=== PATIENT | male | born 1935 | race African-American/Black ===

== ENCOUNTER 2024-03-26 15:27 | Inpatient (IN) | payer OTHER ==
[~2024-03-26] VITALS: Ht 182.9 cm; Wt 56.5 kg
[2024-03-26] MEDS: ALBUTEROL (0.083%) 2.5MG/3ML NEB HHN NR (15:35)
[2024-03-26] MEDS: NITROGLYCERIN OINT 1GM/INCH UDPKT TD NR (16:00)
[2024-03-26] MEDS: FUROSEMIDE 40MG/4ML VIAL IV NR (16:00)
[2024-03-26 16:13] LABS: BASOPHILS % 0.1 % (0.0-2.0); HEMATOCRIT. 37.2 % (42.0-52.0); HEMOGLOBIN. 11.5 g/dL (14.0-18.0); LYMPHOCYTES % 7.8 % (20.0-50.0); MEAN CORPUSCULAR HEMOGLOBIN 30.8 pg (28.0-32.0); MEAN CORPUSCULAR HGB CONC 30.9 g/dL (31.0-37.0); MEAN CORPUSCULAR VOLUME 99.7 fL (80.0-94.0); MEAN PLATELET VOLUME 8.4 fl (7.4-10.4); MONOCYTES % 5.6 % (2.0-8.0); NEUTROPHILS % 86.5 % (40.0-76.0); PLATELET 313 x1000/uL (130-400); RED BLOOD CELL COUNT 3.73 mill/uL (4.7-6.1); RED CELL DISTRIBUTION WIDTH 18.1 % (11.6-14.6); WHITE BLOOD COUNT 8.7 x1000/uL (4.5-11.0)
[2024-03-26 16:28] LABS: CHLORIDE 124 mEq/L (98-107); POTASSIUM 4.3 mEq/L (3.5-5.1)
[2024-03-26 16:29] LABS: CALCIUM 10.2 mg/dL (8.7-10.4); CARBON DIOXIDE 25 mEq/L (21-32)
[2024-03-26 16:34] LABS: CREATININE 1.7 mg/dL (0.6-1.3); GLUCOSE 214 mg/dL (70-105); UREA NITROGEN BLOOD 48 mg/dL (9-23)
[2024-03-26 16:35] LABS: TROPONIN I HIGH SENSITIVITY 30 ng/L (3.0-53)
[2024-03-26 16:40] LABS: PARTIAL THROMBOPLASTIN TIME 50.9 sec (23.4-31.0); PROTHROMBIN TIME 62.9 sec (9.6-11.0)
[2024-03-26 16:45] LABS: BG BASE EXCESS 0.9 mmol/L (-2.0-3.0); BG CARBOXYHEMOGLOBIN 0.3 % (0.5-1.5); BG DEOXYHEMOGLOBIN 2.2 % (0.0-5.0); BG FRACTION INSPIRED OXYGEN 100; BG HCO3 ACT 25.9 mmol/L (21.0-28.0); BG OXYGEN SATURATION 97.8 % (94.0-98.0); BG OXYHEMOGLOBIN 97.5 % (94.0-98.0); BG PCO2 42.5 mmHg (35.0-48.0); BG PH 7.402 (7.350-7.450); BG PO2 101.8 mmHg (83.0-108.0); BG SAMPLE SITE RIGHT RADIAL; BG TOTAL HEMOGLOBIN 11.7 g/dL (13.5-17.5); BG VENT MODE MASK - NRB
[2024-03-26 16:49] LABS: INR 6.5
[2024-03-26 17:04] LABS: SODIUM 160 mEq/L (136-145)
[2024-03-26] MEDS: DEXT 5%/LACTATED RINGERS 1,000 ML IV SCH (20:00)
[2024-03-26] MEDS ORDERED: DOCUSATE SODIUM 100MG CAPSULE PO PRN (20:15)
[2024-03-26] MEDS ORDERED: ENOXAPARIN 40MG/0.4ML SYR SUBCUT SCH (20:15)
[2024-03-26] MEDS ORDERED: ACETAMINOPHEN 325MG TABLET PO PRN ×2 (20:15)
[2024-03-26] MEDS ORDERED: DEXTROSE 50% WATER 50ML SYRINGE IV PRN (20:15)
[2024-03-26] MEDS ORDERED: GUAIFENESIN 200MG/10ML SUGAR FREE UDC PO PRN (20:15)
[2024-03-26] MEDS ORDERED: KETOROLAC 15MG/ML VIAL IV PRN (20:15)
[2024-03-26] MEDS ORDERED: CLONIDINE 0.1MG TABLET PO PRN (20:15)
[2024-03-26] MEDS ORDERED: IPRATROPIUM/ALBUTEROL 0.5-3(2.5)MG/3ML NEB NEB PRN (20:15)
[2024-03-26] MEDS ORDERED: ONDANSETRON HCL 4MG/2ML INJ IV PRN (20:15)
[2024-03-26] MEDS ORDERED: MAGNESIUM/ALUMINUM HYDROXIDE/SIMETHICONE 30ML UDC PO PRN (20:15)
[2024-03-26] MEDS ORDERED: NITROGLYCERIN 0.4MG TABLET SL SL PRN (20:15)
[2024-03-26] MEDS: ENOXAPARIN 30MG/0.3ML SYR SUBCUT SCH (20:43)
[2024-03-26] MEDS: VANCOMYCIN 1.25GM PMX (XELLIA) 250 ML IV NR (21:03)
[2024-03-26] MEDS: BLOOD SUGAR DIAGNOSTIC STRIP TEST SCH (21:09)
[2024-03-26] MEDS: INSULIN LISPRO 100 UNITS/ML SUBCUT SCH (21:13)
[2024-03-26] MEDS: FAMOTIDINE 20MG TABLET PO SCH (22:07)
[2024-03-26] MEDS: ASCORBIC ACID 500 MG TABLET PO SCH (22:07)
[2024-03-26] MEDS: INSULIN GLARGINE 100 UNITS/ML SUBCUT SCH (22:16)
[2024-03-26] MEDS: METHYLPREDNISOLONE SOD SUCC 125MG/2ML (ACT-O-VIAL) IV SCH (22:17)
[2024-03-26 22:19] LABS: IRON 21 ug/dL (65-175); TRIGLYCERIDE 79 mg/dL (0-150)
[2024-03-26 22:20] LABS: LDL CHOLESTEROL 106 mg/dL (5-100)
[2024-03-26 22:21] LABS: ALANINE AMINOTRANSFERASE < 7 IU/L (10-49); ALBUMIN 3.1 g/dL (3.2-4.8); ASPARTATE AMINOTRANSFERASE 14 IU/L (<34); BILIRUBIN DIRECT 0.1 mg/dL (<=3.0); BILIRUBIN TOTAL 0.6 mg/dL (0.1-1.0); CREATINE KINASE 26 IU/L (46-171); CREATINE KINASE MB FRACTION < 0.5 ng/mL (0.5-3.6); HDL CHOLESTEROL 28 mg/dL (>55); TOTAL IRON BINDING CAPACITY 369 ug/dl (250-425); TROPONIN I HIGH SENSITIVITY 28 ng/L (3.0-53)
[2024-03-26 22:22] LABS: LACTIC ACID 2.8 mmol/L (0.4-2.0); PROTEIN TOTAL 6.4 g/dL (6.0-8.3)
[2024-03-26 22:30] LABS: FOLIC ACID (FOLATE) SERUM > 20.00 ng/mL (>5.38)
[2024-03-26 22:34] LABS: CHOLESTEROL 163 mg/dL (<200)
[2024-03-26] MEDS: MEROPENEM 1G/100ML 100 ML IV SCH (22:58)
[2024-03-27] VITALS (45 sets, daily range): BP systolic 70–130; BP diastolic 46–77; PULSE 79–127; RESP 10–48; TEMP 35.8362–36.8072; O2SAT 91–100
[2024-03-27] MEDS: IPRATROPIUM/ALBUTEROL 0.5-3(2.5)MG/3ML NEB HHN SCH
[2024-03-27] MEDS ORDERED: NOREPINEPHRINE 8MG/250ML PMX 250 ML IV PRN (07:30)
[2024-03-27] MEDS: SODIUM CHLORIDE 0.45% 500 ML IV ONE (08:54)
[2024-03-27] MEDS: ZINC SULFATE 220 MG ( 50 ) CAPSULE PO SCH (08:56)
[2024-03-27] MEDS: ASPIRIN 81MG EC TABLET PO SCH (08:56)
[2024-03-27] MEDS: DOPAMINE 400MG/250ML PREMIX 250 ML IV PRN (10:55)
[2024-03-27 11:52] LABS: HEMATOCRIT. 35.8 % (42.0-52.0); MEAN CORPUSCULAR HEMOGLOBIN 30.6 pg (28.0-32.0); MEAN CORPUSCULAR HGB CONC 30.6 g/dL (31.0-37.0); MEAN PLATELET VOLUME 9.1 fl (7.4-10.4); PLATELET 201 x1000/uL (130-400); RED BLOOD CELL COUNT 3.58 mill/uL (4.7-6.1); RED CELL DISTRIBUTION WIDTH 17.9 % (11.6-14.6); WHITE BLOOD COUNT 9.2 x1000/uL (4.5-11.0)
[2024-03-27 11:55] LABS: DIFFERENTIAL COMMENT 1
[2024-03-27 12:05] LABS: CHLORIDE 126 mEq/L (98-107); POTASSIUM 3.3 mEq/L (3.5-5.1)
[2024-03-27 12:06] LABS: CALCIUM 9.7 mg/dL (8.7-10.4); CARBON DIOXIDE 24 mEq/L (21-32)
[2024-03-27 12:10] LABS: CREATINE KINASE MB FRACTION 1.2 ng/mL (0.5-3.6); TROPONIN I HIGH SENSITIVITY 24 ng/L (3.0-53)
[2024-03-27 12:11] LABS: CREATININE 1.5 mg/dL (0.6-1.3); GLUCOSE 97 mg/dL (70-105); UREA NITROGEN BLOOD 49 mg/dL (9-23)
[2024-03-27 12:12] LABS: ALANINE AMINOTRANSFERASE < 7 IU/L (10-49)
[2024-03-27 12:13] LABS: ALBUMIN 2.9 g/dL (3.2-4.8); ASPARTATE AMINOTRANSFERASE 16 IU/L (<34); BILIRUBIN TOTAL 0.5 mg/dL (0.1-1.0); CREATINE KINASE 34 IU/L (46-171); PHOSPHORUS 1.9 mg/dL (2.5-4.9); PROTEIN TOTAL 6.2 g/dL (6.0-8.3)
[2024-03-27 12:16] LABS: SODIUM 159 mEq/L (136-145)
[2024-03-27] MEDS ORDERED: POTASSIUM CHLORIDE 20 MEQ in DEXT 5% WATER 90 ML IV ONE (13:00)
[2024-03-27] MEDS: KCL 10MEQ/50ML PREMIX 50 ML IV SCH (14:25)
[2024-03-27 15:32] LABS: ANISOCYTOSIS 1+; PLATELET ESTIMATE NORMAL
[2024-03-27] MEDS: MEROPENEM 1G/100ML 100 ML IV SCH (15:58)
[2024-03-27] MEDS: POTASSIUM PHOSPHATE 20 MMOL in DEXT 5% WATER 243.3333 ML IV NR (15:58)
[2024-03-27] MEDS: VANCOMYCIN 750MG/150ML (BAXTER) IV SCH (22:17)
[2024-03-28] VITALS (69 sets, daily range): BP systolic 73–132; BP diastolic 21–113; PULSE 65–118; RESP 11–33; TEMP 36.05844–36.3918; O2SAT 94–100
[2024-03-28 05:44] LABS: CHLORIDE 123 mEq/L (98-107)
[2024-03-28 05:45] LABS: CALCIUM 9.1 mg/dL (8.7-10.4); CARBON DIOXIDE 22 mEq/L (21-32)
[2024-03-28 05:48] LABS: HEMATOCRIT. 36.5 % (42.0-52.0); HEMOGLOBIN. 11.4 g/dL (14.0-18.0); MEAN CORPUSCULAR HEMOGLOBIN 31.2 pg (28.0-32.0); MEAN CORPUSCULAR HGB CONC 31.2 g/dL (31.0-37.0); MEAN CORPUSCULAR VOLUME 100.2 fL (80.0-94.0); MEAN PLATELET VOLUME 9.2 fl (7.4-10.4); PLATELET 240 x1000/uL (130-400); RED BLOOD CELL COUNT 3.64 mill/uL (4.7-6.1); RED CELL DISTRIBUTION WIDTH 18.1 % (11.6-14.6); WHITE BLOOD COUNT 7.8 x1000/uL (4.5-11.0)
[2024-03-28 05:50] LABS: CREATININE 1.4 mg/dL (0.6-1.3); GLUCOSE 134 mg/dL (70-105); UREA NITROGEN BLOOD 44 mg/dL (9-23)
[2024-03-28 05:52] LABS: ALANINE AMINOTRANSFERASE 13 IU/L (10-49); ALBUMIN 3.1 g/dL (3.2-4.8); ASPARTATE AMINOTRANSFERASE 25 IU/L (<34); BILIRUBIN TOTAL 0.5 mg/dL (0.1-1.0); PROTEIN TOTAL 6.4 g/dL (6.0-8.3)
[2024-03-28 06:13] LABS: SODIUM 156 mEq/L (136-145)
[2024-03-28 06:43] LABS: DIFFERENTIAL COMMENT 1
[2024-03-28] MEDS ORDERED: LIDOCAINE HCL 1% 10 MG/ML 10ML VIAL ONE (07:23)
[2024-03-28] MEDS: MAGNESIUM 2 G PREMIX 50 ML IV NR (08:12)
[2024-03-28] MEDS ORDERED: NOREPINEPHRINE 8MG/250ML PMX 250 ML IV PRN (09:00)
[2024-03-28] MEDS: LACTATED RINGERS 2,000 ML IV NR (09:42)
[2024-03-28] MEDS: LACTATED RINGERS 1,000 ML IV ONE (10:55)
[2024-03-28 15:57] LABS: ANISOCYTOSIS 2+; PLATELET ESTIMATE NORMAL
[2024-03-28] MEDS: ACETYLCYSTEINE 200MG/ML 20% VIAL 4ML INH SCH (16:32)
[2024-03-29] MEDS ORDERED: PREDNISONE 20MG TABLET PO SCH (09:00)
[2024-03-29] MEDS ORDERED: VANCOMYCIN 750MG PMX (XELLIA) 150 ML IV SCH (12:00)
== END 2024-03-28 17:00 | disposition short-term general hospital (02) | DRG 871 ==
LOC: ER 15:27 → 5EST 17:44 → MICUSO 03-27 15:21
PROVIDERS: ADMIT Internal Medicine; ATTEND Internal Medicine
PROC: 02H633Z Insertion of Infusion Device into Right Atrium, Percutaneous Approach (ICD-10-PCS; principal; 2024-03-28)
PROC: B548ZZA Ultrasonography of Superior Vena Cava, Guidance (ICD-10-PCS; 2024-03-28)
DX: A41.9 Sepsis, unspecified organism (principal); G92.8 Other toxic encephalopathy; N17.0 Acute kidney failure with tubular necrosis; R65.21 Severe sepsis with septic shock; J96.01 Acute respiratory failure with hypoxia; E87.0 Hyperosmolality and hypernatremia; E87.20 Acidosis, unspecified; I48.20 Chronic atrial fibrillation, unspecified; D63.8 Anemia in other chronic diseases classified elsewhere; F03.90 Unspecified dementia, unspecified severity, without behavioral disturbance, psychotic disturbance, mood disturbance, and anxiety; I11.0 Hypertensive heart disease with heart failure; I50.9 Heart failure, unspecified; Z66 Do not resuscitate; E86.0 Dehydration; E87.6 Hypokalemia; E83.42 Hypomagnesemia; S41.112A Laceration without foreign body of left upper arm, initial encounter; S41.111A Laceration without foreign body of right upper arm, initial encounter; F19.10 Other psychoactive substance abuse, uncomplicated; S30.0XXA Contusion of lower back and pelvis, initial encounter; Z86.73 Personal history of transient ischemic attack (TIA), and cerebral infarction without residual deficits; Z89.612 Acquired absence of left leg above knee; Z89.611 Acquired absence of right leg above knee; Z74.01 Bed confinement status; Z79.01 Long term (current) use of anticoagulants; X58.XXXA Exposure to other specified factors, initial encounter; Y93.89 Activity, other specified; Y92.89 Other specified places as the place of occurrence of the external cause; Y99.8 Other external cause status
CPT/HCPCS: 31720; 36415; 36573; 36600; 71045; 80048; 80053; 80061; 80076; 82375; 82550; 82553; 82746; 82805; 82962; 83036; 83540; 83550; 83605; 83735; 83880; 84100; 84145; 84484; 85025; 87804; 93005; 93970; 94640; 99291; A6261; C1725; C1893; J1265; J1650; J1815; J1940; J2185; J2919; J3370; J3475; J3480; J3490; J7060; J7121; J7608